=== PATIENT | male | born 1980 | race African-American/Black ===

== ENCOUNTER 2020-08-24 19:46 | Emergency (ER) | payer SELFPAY ==
[~2020-08-24] VITALS: Ht 198.1 cm; Wt 113.6 kg
[2020-08-24 21:58] VITALS: BP 127/79
--- NOTE | 2020-08-24 22:18 | PHYS DOC ---
General Adult EDM: Chief Complaint: LOWER EXTREMITY SWELLING HPI: HPI: Patient is a 39 year old male who presents with states tenderness to the outer part of his right eye a couple days ago but is no longer that way. He states that he has been to the eye doctor before and they stated they did not see a nything. He states he had not worn his contacts for quite some time and then worn his contacts in his eye was irritated on the outer side but not the actual eye it was the skin on the outer side of his corner of his eye. He states the pain and irritation has since gone away. Patient denies any pain or any other symptoms. He denies any vision changes, headache or dizziness. He denies any eye pain or discharge from his eyes. Review of Systems: Review of Systems: Constitutional: Denies fever or chills. [] Eyes: Denies change in visual acuity. +Tenderness to the skin on the outer portion of the eye [] HENT: Denies nasal congestion or sore throat. [] Respiratory: Denies cough or shortness of breath. [] Cardiovascular: Denies chest pain or edema. [] GI: Denies abdominal pain, nausea, vomiting, bloody stools or diarrhea. [] : Denies dysuria. [] Musculoskeletal: Denies back pain or joint pain. [] Integument: Denies rash. [] Neurologic: Denies headache, focal weakness or sensory changes. [] Endocrine: Denies polyuria or polydipsia. [] Lymphatic: Denies swollen glands. [] Psychiatric: Denies depression or anxiety. [] Heart Score: Risk Factors: Risk Factors: DM, Current or recent (<one month) smoker, HTN, HLP, family history of CAD, obesity. Risk Scores: Score 0 - 3: 2.5% MACE over next 6 weeks - Discharge Home Score 4 - 6: 20.3% MACE over next 6 weeks - Admit for Clinical Observation Score 7 - 10: 72.7% MACE over next 6 weeks - Early Invasive Strategies Physical Exam: PE: Constitutional: Well developed, well nourished, no acute distress, non-toxic appearance. [] HENT: Normocephalic, atraumatic, bilateral external ears normal, oropharynx moist, no oral exudates, nose normal. [] Eyes: PERRLA, EOMI, conjunctiva normal, no discharge. [] Neck: Normal range of motion, no tenderness, supple, no stridor. [] Cardiovascular:Heart rate regular rhythm, no murmur [] Lungs & Thorax: Bilateral breath sounds clear to auscultation [] Abdomen: Bowel sounds normal, soft, no tenderness, no masses, no pulsatile masses. [] Skin: Warm, dry, no erythema, no rash. [] Back: No tenderness, no CVA tenderness. [] Extremities: No tenderness, no cyanosis, no clubbing, ROM intact, no edema. [] Neurologic: Alert and oriented X 3, normal motor function, normal sensory functi on, no focal deficits noted. [] Psychologic: Affect normal, judgement normal, mood normal. Normal physical exam [] EKG: EKG: [] Radiology/Procedures: Radiology/Procedures: [] Course & Med Decision Making: Course & Med Decision Making Pertinent Labs and Imaging studies reviewed. (See chart for details) See HPI. PERRLA. Skin pink warm and dry. Full range of motion of his eyes and off his eyesight is intact. No extraocular eye motion tenderness. Conjunctivae is a white. No discharge around the eye. Patient to follow-up with his primary care physician or eye doctor. [] Dragon Disclaimer: Dragon Disclaimer: This electronic medical record was generated, in whole or in part, using a voice recognition dictation system. Departure Departure Impression: Primary Impression: Eye problem Disposition: 01 DC HOME SELF CARE/HOMELESS Condition: STABLE Referrals: NO PCP (PCP) Patient Instructions: Medical Screening Exam Additional Instructions: Follow-up with eye doctor if needed. CHRISTINE JAVIER [employer] SPECIALIST Aug 24, 2020 22:18
== END 2020-08-24 22:23 | disposition home or self-care (01) ==
LOC: ER 19:46
DX: H57.89 Other specified disorders of eye and adnexa (principal); L29.9 Pruritus, unspecified
CPT/HCPCS: 99281